=== PATIENT | male | born 1965 | race Caucasian/White ===

== ENCOUNTER 2016-08-22 00:55 | Emergency (ER) | payer MEDICAID, OTHER ==
[~2016-08-22] VITALS: Ht 177.8 cm; Wt 99.8 kg
[~2016-08-22 00:55] MED LIST: AMOX-427 PO; LEVO500T15 PO; LISI-607 PO; METF10002 PO
[2016-08-22 01:09] VITALS: BP 165/104
[2016-08-22] MEDS ORDERED: LIDOCAINE VISCOUS 2% UD 15 ML UDC ONE (01:19)
[2016-08-22] MEDS ORDERED: LIDOCAINE VISCOUS 2% UD 15 ML UDC MM ONE (01:30)
== END 2016-08-22 01:27 | disposition home or self-care (01) ==
LOC: ER 00:57
DX: T70.29XA Other effects of high altitude, initial encounter (principal); E11.9 Type 2 diabetes mellitus without complications; F17.200 Nicotine dependence, unspecified, uncomplicated; X58.XXXA Exposure to other specified factors, initial encounter; Y93.9 Activity, unspecified; Y92.9 Unspecified place or not applicable; Y99.9 Unspecified external cause status
CPT/HCPCS: 99282; A4606; Z7610; Z7502

== ENCOUNTER 2017-10-04 06:31 | Inpatient (IN) | payer OTHER ==
[~2017-10-04] VITALS: Ht 177.8 cm; Wt 81.6 kg
[~2017-10-04 06:31] MED LIST changes: -LEVO500T15 PO; +LEVO500T75 PO; +METF-442 PO; -METF10002 PO
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
[2017-10-04] MEDS ORDERED: ONDANSETRON HCL/PF 4 MG/2 ML VIAL ONE (06:55)
[2017-10-04] MEDS ORDERED: MORPHINE SULFATE INJ 4 MG/ML DISP.SYRIN ONE (06:56)
[2017-10-04] MEDS ORDERED: PIPERACILLIN /TAZOBACTAM 3.375 G in IV D5W 50 ML IV ONE (07:00)
[2017-10-04] MEDS ORDERED: IV NS 0.9% 1,000 ML BAG IV ONE (07:00)
[2017-10-04] MEDS ORDERED: MORPHINE SULFATE INJ 2 MG/ML DISP.SYRIN IV ONE (07:00)
[2017-10-04] MEDS ORDERED: ONDANSETRON HCL/PF 4 MG/2 ML VIAL IVP ONE (07:00)
[2017-10-04] MEDS ORDERED: VANCOMYCIN 1 GM in IV D5W 250 ML IV ONE (07:00)
--- NOTE | 2017-10-04 07:00 | NUR ---
ER AT BEDSIDE
[2017-10-04] MEDS ORDERED: PIPERACILLIN /TAZOBACTAM 3.375 G VIAL IV ONE (07:12)
--- NOTE | 2017-10-04 07:19 | NUR ---
REPORT RECEIVED FROM KAY RICKETTS FOR SHARON
--- NOTE | 2017-10-04 07:22 | NUR ---
oral surgery technician at bedside
[2017-10-04 07:42] LABS: BASOPHILS # (AUTO) 0.1 /CMM (0.0-0.2); BASOPHILS % (AUTO) 0.3 % (0.0-2.0); EOSINOPHILS % (AUTO) 0.6 % (0.0-6.0); HEMATOCRIT 42 % (39-51); HEMOGLOBIN 14.2 g/dL (13.5-17.5); LYMPHOCYTES # (AUTO) 1.5 /CMM (0.8-4.8); LYMPHOCYTES % (AUTO) 8.2 % (20.0-44.0); MEAN CORPUSCULAR HGB CONC 34 g/dl (31.0-36.0); MEAN CORPUSCULAR VOLUME 93 fL (80-96); MONOCYTES # (AUTO) 1.3 /CMM (0.1-1.30); MONOCYTES % (AUTO) 6.9 % (2.0-12.0); NEUTROPHILS # (AUTO) 15.5 /CMM (1.8-8.9); PLATELET COUNT (AUTO) 316 /CMM (150-450); RDW COEFFICIENT OF VARIATION 13.4 (11.5-15.0); RED BLOOD CELL COUNT(AUTO) 4.46 MIL/uL (4.5-6.0); WHITE BLOOD COUNT (AUTO) 18.5 K/uL (4.3-11.0)
[2017-10-04] MEDS ORDERED: VANCOMYCIN 1 GM VIAL ONE (07:45)
[2017-10-04 07:50] LABS: CALCIUM, SERUM 8.2 mg/dL (8.5-10.1); CREATININE 0.8 mg/dL (0.6-1.3); POTASSIUM 3.9 mmol/L (3.5-5.1)
[2017-10-04] MEDS ORDERED: TDAP [DIPH/PERTUSSIS/TET] 0.5 ML VIAL IM ONE ×2 (08:00→08:25)
--- NOTE | 2017-10-04 08:16 | NUR ---
DR CATA JIN FOR CONSULT
--- NOTE | 2017-10-04 08:20 | NUR ---
REPORT GIVEN TO SERGIO RICKETTS FOR ADMISSION. DR ROLON ON PHONE WITH DR IVY
[2017-10-04] MEDS ORDERED: MORPHINE SULFATE INJ 2 MG/ML DISP.SYRIN IV PRN (08:30)
[2017-10-04] MEDS ORDERED: ACETAMINOPHEN 325 MG TABLET PO PRN (08:30)
[2017-10-04] MEDS ORDERED: ZOLPIDEM TARTRATE 5 MG TABLET PO PRN (08:30)
[2017-10-04] MEDS ORDERED: MAG HYDROX/AL HYDROX/SIMETH 30 ML UDC PO PRN (08:30)
[2017-10-04] MEDS ORDERED: *INSULIN REGULAR(HUMULIN R)HUM 100 UNIT/ML VIAL SQ PRN (08:30)
[2017-10-04] MEDS ORDERED: ONDANSETRON HCL/PF 4 MG/2 ML VIAL IVP PRN (08:30)
[2017-10-04] MEDS ORDERED: DEXTROSE 50%-WATER 50 ML DISP.SYRIN IV PRN (08:30)
[2017-10-04] MEDS ORDERED: Z GUARD REMEDY 2 OZ OINT TP PRN (08:30)
[2017-10-04] MEDS ORDERED: MAGNESIUM HYDROXIDE 30 ML UDC PO PRN (08:30)
--- NOTE | 2017-10-04 08:32 | NUR ---
OK PER ER MD FOR PT TO EAT. CALLED DIETARY FOR BREAKFAST TRAY.
--- NOTE | 2017-10-04 08:37 | NUR ---
PT TRANSPORTED TO 205- IN STABLE CONDITION VIA WHEELCHAIR Addendum: 10/04/17 at 0837 by HFOX CORRECTION: VIA YEHUDA
[2017-10-04] MEDS ORDERED: INSU100V7 SQ (08:38)
[2017-10-04] MEDS ORDERED: INSU100V3 SQ (08:38)
[2017-10-04] MEDS: LISINOPRIL (5MG) 5 MG TABLET PO SCH (08:50)
[2017-10-04] MEDS: IV NS 0.9% 1,000 ML IV PRN (08:51)
--- NOTE | 2017-10-04 09:00 | NUR ---
RN NOTES PT WAS BROUGHT UP TO FLOOR FROM ER IN STABLE CONDITION. PT IS ALERT AND ORIENTED, ABLE TO AMBULATE TO THE BED. PT ON RA, RESPIRATIONS ARE EVEN AND UNLABORED. IV ON RAC INTACT AND RUNNING NS @ 75ML/HR. SAFETY MEASURES ARE IN PLACE, CALL LIGHT IS IN REACH. WILL CONTINUE TO MONITOR.
[2017-10-04] MEDS ORDERED: FEE PK DOSING 1 MIN EA MC ONE (09:05)
[2017-10-04] MEDS: FENTANYL PF 100MCG/2ML AMPUL IV PRN ×2 (09:06→13:09)
[2017-10-04 09:17] VITALS: BP 110/50
[2017-10-04] MEDS: HYDROCODONE/APAP 5/325MG 1 EACH TABLET PO PRN ×2 (12:35→19:33)
[2017-10-04] MEDS: BLOOD SUGAR DIAGNOSTIC 1 EACH STRIP VI SCH ×3 (12:35→22:08)
--- NOTE | 2017-10-04 15:39 | NUR ---
RN NOTES DR. IVY AND KIRSTIN ARMENDARIZ CAME UP TO WOUND INCISION AND DRAINAGE ON LEFT THUMB. HAND WASHED IN BETADINE AND WATER SOLUTION, AND COVERED WITH XEROFORM AND KERLIX GAUZE.
[2017-10-04 16:00] VITALS: BP 118/55
[2017-10-04] MEDS: LACTOBACILLUS RHAMNOSUS GG 1 EACH CAP.SPRINK PO SCH (16:18)
[2017-10-04] MEDS: VANCOMYCIN 1 GM in IV D5W 250 ML IV SCH (16:18)
[2017-10-04] MEDS: INSULIN REGULAR, HUMAN 100 UNIT/ML 3 ML VIAL SQ PRN (17:37)
--- NOTE | 2017-10-04 18:55 | NUR ---
RN NOTES PT IS SITTING UP IN BED, ALERT AND AWAKE, NO SIGNS OF DISTRESS NOTED. PT ON RA, RESPIRATIONS ARE EVEN AND UNLABORED. IV ON RAC INTACT AND RUNNING NS @75ML/HR. 1730 ACCUCHECK CHECK, 132, 2 UNITS OF INSULIN GIVEN ORDERED. ALL PT NEEDS ANTICIPATED FOR AND MET. SAFETY MEASURES ARE IN PLACE, CALL LIGHT IS IN REACH. WILL ENDORSE TO POULTRY FARMER EGG RN FOR CONTINUITY OF CARE.
--- NOTE | 2017-10-04 19:20 | NUR ---
MS RN NOTES RECEIVED PT IN BED, AWAKE, A/O X 4. VERBALLY RESPONSIVE. NO DISTRESS, NO SOB NOTED. RESPIRATION IS EVEN AND UNLABORED. IV SITE ON RAC INTACT AND PATENT, NO S/S OF INFILTRATION NOTED. IVF INFUSING WELL. PT WITH C/O PAIN 3/10 ON LEFT THUMB, OFFERED MEDICATION BUT PT DOESN'T WANT IT AT THIS TIME. ICE PACK APPLIED, PER PT IT HELPS WITH THE PAIN. ALL NEEDS ATTENDED AND MET. KEPT CLEAN, DRY AND COMFORTABLE. SAFETY PRECAUTIONS OBSERVED. CALL LIGHT WITHIN REACH. WILL CONTINUE TO MONITOR.
[2017-10-04 20:00] VITALS: BP_SYST 140; BP_SYST 150; BP_DIAS 88
[2017-10-05] MEDS: VANCOMYCIN 1 GM in IV D5W 250 ML IV SCH ×2 (00:27→08:22)
[2017-10-05] MEDS: BLOOD SUGAR DIAGNOSTIC 1 EACH STRIP VI SCH ×4 (05:43→21:36)
[2017-10-05] MEDS: INSULIN REGULAR, HUMAN 100 UNIT/ML 3 ML VIAL SQ PRN (05:47)
[2017-10-05 06:31] LABS: BASOPHILS # (AUTO) 0.1 /CMM (0.0-0.2); BASOPHILS % (AUTO) 0.3 % (0.0-2.0); EOSINOPHILS % (AUTO) 0.5 % (0.0-6.0); HEMATOCRIT 44 % (39-51); HEMOGLOBIN 14.8 g/dL (13.5-17.5); LYMPHOCYTES # (AUTO) 1.9 /CMM (0.8-4.8); LYMPHOCYTES % (AUTO) 11.9 % (20.0-44.0); MEAN CORPUSCULAR HGB CONC 34 g/dl (31.0-36.0); MEAN CORPUSCULAR VOLUME 95 fL (80-96); MONOCYTES # (AUTO) 1.4 /CMM (0.1-1.30); MONOCYTES % (AUTO) 8.8 % (2.0-12.0); NEUTROPHILS # (AUTO) 12.7 /CMM (1.8-8.9); NEUTROPHILS % (AUTO) 78.5 % (43.0-81.0); PLATELET COUNT (AUTO) 315 /CMM (150-450); RDW COEFFICIENT OF VARIATION 13.6 (11.5-15.0); WHITE BLOOD COUNT (AUTO) 16.2 K/uL (4.3-11.0)
[2017-10-05 06:38] LABS: CALCIUM, SERUM 8.1 mg/dL (8.5-10.1); MAGNESIUM 1.9 mg/dL (1.8-2.4); PHOSPHORUS 2.7 mg/dL (2.5-4.9); POTASSIUM 3.7 mmol/L (3.5-5.1)
--- NOTE | 2017-10-05 06:45 | NUR ---
MS RN NOTES PT IN BED, RESTING COMFORTABLY IN BED, A/O X 4. VERBALLY RESPONSIVE. NO DISTRESS, NO SOB NOTED. RESPIRATION IS EVEN AND UNLABORED. IV SITE ON RAC INTACT AND PATENT, NO S/S OF INFILTRATION NOTED. IVF INFUSING WELL. NO C/O PAIN OR DISCOMFORT AT THIS TIME. NO S/S OF HYPO/ HYPERGLYCEMIA NOTED. ALL NEEDS ATTENDED AND MET. KEPT CLEAN, DRY AND COMFORTABLE. SAFETY PRECAUTIONS OBSERVED. CALL LIGHT WITHIN REACH. WILL ENDORSE TO NEXT SHIFT FOR SHARON.
--- NOTE | 2017-10-05 07:15 | NUR ---
RN NOTES PT IS LAYING DOWN IN BED, SLEEPING COMFORTABLY. PT ON RA, RESPIRATIONS ARE EVEN AND UNLABORED. IV ON RAC INTACT AND PATENT. SAFETY MEASURES ARE IN PLACE, CALL LIGHT IS IN REACH. WILL CONTINUE TO MONITOR.
[2017-10-05 08:00] VITALS: BP 167/99
[2017-10-05] MEDS: LACTOBACILLUS RHAMNOSUS GG 1 EACH CAP.SPRINK PO SCH ×2 (08:06→16:58)
[2017-10-05] MEDS: LISINOPRIL (5MG) 5 MG TABLET PO SCH (08:06)
[2017-10-05 08:15] VITALS: BP 162/99
--- NOTE | 2017-10-05 14:00 | NUR ---
RN NOTES PT WAS GIVEN 20 MEQ POTASSIUM ORDERED. 5 MINUTES LATER THE PT STARTED TO THROW UP AND THE PILL WAS FOUND IN THE EMESIS BAG. DENISE FONSECA PROGRAM MGR WAS NOTIFIED AND ORDERED 10 MEQ POTASSIUM IV.
[2017-10-05] MEDS: IV NS 0.9% 1,000 ML IV PRN (15:05)
[2017-10-05] MEDS: VANCOMYCIN 1.25 GM in IV D5W 500 ML IV SCH ×2 (15:05→23:49)
[2017-10-05 16:00] VITALS: BP 119/83
[2017-10-05 16:27] VITALS: BP 119/83
--- NOTE | 2017-10-05 18:40 | NUR ---
RN NOTES PT IS LAYING DOWN IN BED, RESTING COMFORTABLY. PT ON RA, RESPIRATIONS ARE EVEN AND UNLABORED. IV ON RAC INTACT AND RUNNING NS @ 75ML/HR. ALL MEDS WERE GIVEN ORDERED AND PT NEEDS MET. 1730 ACCUCHECK WAS 92, NO INSULIN COVERAGE NEEDED. PT SHOWS NO SIGNS OF DISTRESS AND DENIES ANY PAIN AT THIS TIME. SAFETY MEASURES ARE IN PLACE, CALL LIGHT IS IN REACH. WILL ENDORSE TO SEO MANAGER RN FOR CONTINUITY OF CARE.
--- NOTE | 2017-10-05 19:10 | NUR ---
MS RN NOTES RECEIVED PT IN BED, AWAKE, A/O X 4. VERBALLY RESPONSIVE. NO DISTRESS, NO SOB NOTED. RESPIRATION IS EVEN AND UNLABORED. IV SITE ON RAC , OUT, REMOVED, PRESSURE APPLIED. NO BLEEDING NOTED AT THIS TIME. INSERTED IV ON RIGHT HAND 20 GAUGE X 1 ATTEMPT WITH GOOD VENOUS RETURN , PT FABIOLA WELL. NO S/S OF HYPO/ HYPERGLYCEMIA NOTED AT THIS TIME. ALL NEEDS ATTENDED AND MET. KEPT CLEAN, DRY AND COMFORTABLE. SAFETY PRECAUTIONS OBSERVED. CALL LIGHT WITHIN REACH. WILL CONTINUE TO MONITOR.
[2017-10-05 20:00] VITALS: BP 146/87
[2017-10-06] MEDS: BLOOD SUGAR DIAGNOSTIC 1 EACH STRIP VI SCH ×4 (05:55→21:21)
--- NOTE | 2017-10-06 06:24 | NUR ---
MS RN NOTES PT IN BED, RESTING COMFORTABLY AT THIS TIME, AROUSES EASILY. A/O X 4. VERBALLY RESPONSIVE. NO DISTRESS, NO SOB NOTED. RESPIRATION IS EVEN AND UNLABORED. IV SITE ON RIGHT HAND INTACT AND PATENT, NO S/S OF INFILTRATION NOTED. IVF INFUSING WELL. LEFT THUMB WOUND WITH CLEAN AND INTACT DRESSING. WOUND TREATMENT DONE ORDERED .PT WITH NO S/S OF HYPO/ HYPERGLYCEMIA NOTED AT THIS TIME. ALL DUE MED GIVEN. PT VOIDING WITH CLEAR YELLOW URINE, AMBULATORY. ALL NEEDS ATTENDED AND MET. KEPT COMFORTABLE. SAFETY PRECAUTIONS OBSERVED. CALL LIGHT WITHIN REACH. WILL ENDORSE TO NEXT SHIFT ACCORDINGLY.
--- NOTE | 2017-10-06 07:32 | NUR ---
RN OPENING NOTES RECEIVED PATIENT IN BED RESTING. NO ACUTE DISTRESS, NO SOB NOTED. NO S/S OF PAIN OR DISCOMFORT. IV SITE INTACT AND PATENT. KEPT PATIENT SAFE AND COMFORTABLE. BED IN LOW/LOCKED POSITION, SIDERAILS UPX2. CALL LIGHT IN REACH, WILL CONTINUE TO MONITOR ACCORDINGLY.
[2017-10-06 07:41] LABS: BASOPHILS # (AUTO) 0.1 /CMM (0.0-0.2); BASOPHILS % (AUTO) 0.6 % (0.0-2.0); EOSINOPHILS % (AUTO) 1.8 % (0.0-6.0); HEMATOCRIT 46 % (39-51); HEMOGLOBIN 15.4 g/dL (13.5-17.5); LYMPHOCYTES # (AUTO) 2.2 /CMM (0.8-4.8); MEAN CORPUSCULAR HGB CONC 34 g/dl (31.0-36.0); MEAN CORPUSCULAR VOLUME 95 fL (80-96); MONOCYTES # (AUTO) 1.3 /CMM (0.1-1.30); MONOCYTES % (AUTO) 9.5 % (2.0-12.0); NEUTROPHILS # (AUTO) 10.1 /CMM (1.8-8.9); NEUTROPHILS % (AUTO) 72.1 % (43.0-81.0); PLATELET COUNT (AUTO) 345 /CMM (150-450); RDW COEFFICIENT OF VARIATION 13.8 (11.5-15.0); RED BLOOD CELL COUNT(AUTO) 4.84 MIL/uL (4.5-6.0); WHITE BLOOD COUNT (AUTO) 14.1 K/uL (4.3-11.0)
[2017-10-06 07:48] LABS: CALCIUM, SERUM 8.1 mg/dL (8.5-10.1); CREATININE 0.7 mg/dL (0.6-1.3)
[2017-10-06 08:00] VITALS: BP 160/71
[2017-10-06] MEDS: LISINOPRIL (5MG) 5 MG TABLET PO SCH (08:57)
[2017-10-06] MEDS: LACTOBACILLUS RHAMNOSUS GG 1 EACH CAP.SPRINK PO SCH ×2 (08:58→16:10)
[2017-10-06] MEDS: VANCOMYCIN 1.25 GM in IV D5W 500 ML IV SCH ×2 (09:00→16:06)
[2017-10-06 09:39] VITALS: BP 138/57
[2017-10-06] MEDS: INSULIN REGULAR, HUMAN 100 UNIT/ML 3 ML VIAL SQ PRN (12:44)
[2017-10-06 16:00] VITALS: BP 137/83
[2017-10-06] MEDS: IV NS 0.9% 1,000 ML IV PRN (18:39)
--- NOTE | 2017-10-06 19:25 | NUR ---
RN CLOSING NOTES PATIENT IN BED RESTING. NO ACUTE DISTRESS, NO SOB NOTED. DENIES PAIN OR DISCOMFORT. ALL NEEDS ATTENDED AND PROVIDED. KEPT PATIENT SAFE AND COMFORTABLE. BED IN LOW/LOCKED POSITION, SIDERAILS UPX2, CALL LIGHT IN REACH. ENDORSED TO NIGHT RN FOR SHARON.
--- NOTE | 2017-10-06 19:30 | NUR ---
MS RN INITIAL NOTE PT IS IN BED, AWAKE AND ALERT. ABLE TO MAKE NEEDS KNOWN. NO SIGNS OF SOB OR DISTRESS, BREATHING EVENLY AND UNLABORED ON RA. IV ACCESS IS INTACT AND PATENT. DENIES PAIN AT THIS TIME. WOUND CARE DRESSING INTACT NO SIGNS OF DRAINAGE. BED IS IN LOW AND LOCKED POSITION, CALL LIGHT WITHIN REACH. WILL CONTINUE TO MONITOR PT.
[2017-10-06 20:00] VITALS: BP 136/81
[2017-10-07] MEDS: VANCOMYCIN 1.25 GM in IV D5W 500 ML IV SCH ×3 (00:21→16:18)
[2017-10-07] MEDS: BLOOD SUGAR DIAGNOSTIC 1 EACH STRIP VI SCH ×3 (05:53→16:19)
[2017-10-07 06:04] LABS: BASOPHILS # (AUTO) 0.1 /CMM (0.0-0.2); BASOPHILS % (AUTO) 0.8 % (0.0-2.0); EOSINOPHILS % (AUTO) 4.6 % (0.0-6.0); HEMATOCRIT 44 % (39-51); LYMPHOCYTES # (AUTO) 2.1 /CMM (0.8-4.8); LYMPHOCYTES % (AUTO) 18.3 % (20.0-44.0); MEAN CORPUSCULAR HGB CONC 34 g/dl (31.0-36.0); MEAN CORPUSCULAR VOLUME 95 fL (80-96); MONOCYTES % (AUTO) 8.6 % (2.0-12.0); NEUTROPHILS # (AUTO) 7.7 /CMM (1.8-8.9); NEUTROPHILS % (AUTO) 67.7 % (43.0-81.0); PLATELET COUNT (AUTO) 344 /CMM (150-450); RDW COEFFICIENT OF VARIATION 13.6 (11.5-15.0); RED BLOOD CELL COUNT(AUTO) 4.67 MIL/uL (4.5-6.0); WHITE BLOOD COUNT (AUTO) 11.4 K/uL (4.3-11.0)
[2017-10-07] MEDS: INSULIN REGULAR, HUMAN 100 UNIT/ML 3 ML VIAL SQ PRN (06:04)
--- NOTE | 2017-10-07 06:12 | NUR ---
MS RN CLOSING NOTE PT IS IN BED RESTING. NO SIGNS OF SOB OR DISTRESS, BREATHING EVENLY AND UNLABORED ON RA. DENIES ANY PAIN AT THIS TIME. IV IS INTACT AND PATENT. BED IS IN LOW AND LOCKED POSITION, CALL LIGHT WITHIN REACH. WILL ENDORSE TO DAYSHIFT
--- NOTE | 2017-10-07 06:12 | NUR ---
MS RN NOTES WOUND CARE RENDERED
[2017-10-07 06:21] LABS: CALCIUM, SERUM 8.3 mg/dL (8.5-10.1); CREATININE 0.8 mg/dL (0.6-1.3)
--- NOTE | 2017-10-07 07:30 | NUR ---
MS/RN OPENING NOTE PATIENT ALERT AND ORIENTED X4. RESPIRATION REGULAR AND UNLABORED. DENIES SOB, DENIES PAIN AT THIS TIME. PATIENT IN NO APPARENT DISTRESS. RIGHT HAND G 20 PATENT AND IV INFUSING WITH NO S/S INFILTRATION. BED LOW AND LOCKED. SIDE RAILS UP X2. CALL LIGHT WITHIN REACH. WILL CONTINUE TO MONITOR.
[2017-10-07 08:00] VITALS: BP 140/84
[2017-10-07] MEDS: LISINOPRIL (5MG) 5 MG TABLET PO SCH (08:14)
[2017-10-07] MEDS: LACTOBACILLUS RHAMNOSUS GG 1 EACH CAP.SPRINK PO SCH ×2 (08:15→16:20)
--- NOTE | 2017-10-07 11:40 | NUR ---
MS/RN NOTE AT 1139 BLOOD SUGAR IS 85. NO INSULIN COVERAGE GIVEN. PATIENT STATED TO EAT LUNCH.
[2017-10-07 16:00] VITALS: BP 118/67
[2017-10-07] MEDS ORDERED: SULF1TAB48 PO (16:13)
--- NOTE | 2017-10-07 18:00 | NUR ---
MS/RN CLOSING NOTE PATIENT ALERT AND ORIENTED X4. RESPIRATION REGULAR AND UNLABORED. DENIES SOB, DENIES PAIN. PATIENT IN NO APPARENT DISTRESS. DISCHARGE INSTRUCTIONS GIVEN ORDERED. PATIENT VERBALIZED UNDERSTANDING. MEDICATION PRESCRIPTION GIVE TO THE PATIENT AND COPY KEPT IN THE CHART. BUS TOKEN PROVIDED. PATIENT WITH GIRLFRIEND GOING HOME AND INSTABLE CONDITION.
== END 2017-10-07 17:40 | disposition home or self-care (01) | DRG 364 ==
LOC: ER 06:33 → MEDSG2 08:28
PROVIDERS: ADMIT Internal Medicine; ATTEND Internal Medicine
PROC: 0KBD0ZZ Excision of Left Hand Muscle, Open Approach (ICD-10-PCS; principal; 2017-10-04)
DX: L03.012 Cellulitis of left finger (principal); L02.512 Cutaneous abscess of left hand; I10 Essential (primary) hypertension; E11.9 Type 2 diabetes mellitus without complications; B95.62 Methicillin resistant Staphylococcus aureus infection as the cause of diseases classified elsewhere; E78.5 Hyperlipidemia, unspecified; F17.210 Nicotine dependence, cigarettes, uncomplicated; V19.9XXA Pedal cyclist (driver) (passenger) injured in unspecified traffic accident, initial encounter; Y93.55 Activity, bike riding; Z91.14 Patient's other noncompliance with medication regimen; Z87.81 Personal history of (healed) traumatic fracture; Z79.84 Long term (current) use of oral hypoglycemic drugs; Z79.899 Other long term (current) drug therapy; Z66 Do not resuscitate; Z83.3 Family history of diabetes mellitus; M19.90 Unspecified osteoarthritis, unspecified site; Y92.410 Unspecified street and highway as the place of occurrence of the external cause; Z79.4 Long term (current) use of insulin
CPT/HCPCS: 36415; 73140-TC; 80048-TC; 80202-TC; 82962-TC; 83605-TC; 83735-TC; 84100-TC; 85025-TC; 85652-TC; 86140-TC; 87040-TC; 87070-TC; 87081-TC; 90715; A4606; A6402; A6403; J1815; J2270; J2405; J2543; J3010; J3370; J7030; J7060; Z7610